=== PATIENT | female | born 1990 | race Caucasian/White ===

== ENCOUNTER 2018-01-19 15:25 | Emergency (ER) | payer SELFPAY ==
[~2018-01-19] VITALS: Ht 165.1 cm; Wt 104.0 kg
[2018-01-19 15:36] VITALS: BP 118/59; TEMP 98.2
[2018-01-19] MEDS ORDERED: PROZAC60 MG (15:49)
[2018-01-19] MEDS ORDERED: IRON 27 MG PO (15:50)
[2018-01-19] MEDS ORDERED: ALLEGRA ALLERGY60 MG PO (15:50)
[2018-01-19] MEDS ORDERED: PROAIR HFA0.09 MG/AC IH (16:22)
[2018-01-19] MEDS ORDERED: PREDNISONE20 MG PO (16:22)
[2018-01-19 17:07] VITALS: PULSE 64
== END 2018-01-19 17:07 | disposition home or self-care (01) ==
LOC: COL.ER 15:25
DX: J45.909 Unspecified asthma, uncomplicated (principal); F17.210 Nicotine dependence, cigarettes, uncomplicated; Z88.8 Allergy status to other drugs, medicaments and biological substances; Z98.51 Tubal ligation status; Z98.890 Other specified postprocedural states

== ENCOUNTER 2018-02-09 19:27 | Emergency (ER) | payer SELFPAY ==
[~2018-02-09] VITALS: Ht 165.1 cm; Wt 101.4 kg
[~2018-02-09 19:27] MED LIST: ALLEGRA ALLERGY60 MG PO; IRON 27 MG PO; PREDNISONE20 MG PO; PROAIR HFA0.09 MG/AC IH; PROZAC60 MG
[2018-02-09 19:29] VITALS: TEMP 98
[2018-02-09 20:08] LABS: BASO % 0.5 % (0.0-2.0); EOS # 0.2 (0.0-0.7); EOS % 2.7 % (0-4.0); GRAN # 5.8 (1.4-6.5); GRAN % 69.2 % (42.2-75.2); HEMOGLOBIN 10.7 g/dl (12.5-16.0); LYMPH # 1.8 (1.2-3.4); LYMPH % 21.9 % (20.0-51.0); MEAN CELL VOLUME 76 fl (80.0-100.0); MEAN CORPUSCULAR HEMOGLOBIN 24 pg (27.0-31.0); MEAN CORPUSCULAR HGB CONC 31 g/dl (33.0-37.0); MEAN PLATELET VOLUME 9.5 fl (7.4-10.4); MONO # 0.5 (0.1-0.6); MONO % 5.5 % (1.7-9.3); PLATELET COUNT 220 K/mm3 (130-400); RED BLOOD COUNT 4.53 M/mm3 (4.10-5.30); REDCELL DISTRIBUTION WIDTH-CV 18.7 % (11.5-14.5)
[2018-02-09 20:10] LABS: HEMATOCRIT 34.4 % (37.0-47.0)
[2018-02-09 20:17] LABS: ALANINE AMINOTRANSFERASE 25 U/L (9-52); ALBUMIN 3.9 gm/dL (3.5-5.0); ALKALINE PHOSPHATASE 80 U/L (50-136); ANION GAP 11 mmol/L (7-16); AST,SGOT 14 U/L (15-37); BILIRUBIN,TOTAL 0.5 mg/dL (0.0-1.0); BLOOD UREA NITROGEN 10 mg/dL (7-17); CALCIUM 9.2 mg/dL (8.4-10.2); CARBON DIOXIDE 24 mmol/L (22-30); CHLORIDE 103 mmol/L (98-107); CREATININE, serum 0.76 mg/dL (0.52-1.25); GLUCOSE 91 mg/dL (74-106); POTASSIUM 3.4 mmol/L (3.4-5.0); SODIUM 138 mmol/L (137-145); TOTAL PROTEIN 7.7 gm/dL (6.4-8.2)
[2018-02-09 20:18] LABS: ACETAMINOPHEN < 10 ug/mL (10-30); ALCOHOL(ethanol),MEDICAL < 10 mg/dL; SALICYLATE < 1.0 mg/dL
[2018-02-09 20:25] LABS: COLLECTION METHOD CLEAN CATCH
[2018-02-09 20:34] LABS: MUCOUS Present /lpf; PH 6 (5-8); SQUAMOUS EPITHELIAL 0-2 /hpf; URINE APPEARANCE Clear; URINE BACTERIA Rare /hpf; URINE BILIRUBIN Negative (NEGATIVE); URINE BLOOD Negative (NEGATIVE); URINE COLOR Yellow; URINE GLUCOSE Negative (NEGATIVE); URINE KETONE Negative (NEGATIVE); URINE LEUKOCYTE ESTERASE Negative (NEGATIVE); URINE NITRATE Negative (NEGATIVE); URINE PROTEIN(semi-quant) Negative (NEGATIVE); URINE RBC None Seen /hpf
[2018-02-09 20:39] LABS: TRICYCLIC ANTIDEPRESS URINE NEGATIVE
[2018-02-09] MEDS ORDERED: CYMBALTA 60MG60 MG PO (21:10)
[2018-02-09] MEDS ORDERED: XANAX 1MG1 MG PO (21:10)
[2018-02-09 23:09] VITALS: BP 113/69; PULSE 90
== END 2018-02-09 22:15 | disposition home or self-care (01) ==
LOC: COL.ER 19:27
PROVIDERS: Emergency Medicine
DX: F41.9 Anxiety disorder, unspecified (principal); F19.939 Other psychoactive substance use, unspecified with withdrawal, unspecified; F32.9 Major depressive disorder, single episode, unspecified; Z98.51 Tubal ligation status

== ENCOUNTER → 2018-12-02 | Outpatient (CLI) | payer MEDICAID ==
[~2018-12-02] MED LIST changes: +CYMBALTA 60MG60 MG PO; +XANAX 1MG1 MG PO
== END ==
LOC: MC.RAD 09:00
DX: N63.20 Unspecified lump in the left breast, unspecified quadrant (principal)

== ENCOUNTER 2019-02-13 08:39 | Emergency (ER) | payer MEDICAID ==
[~2019-02-13] VITALS: Ht 165.1 cm; Wt 86.4 kg
[2019-02-13] MEDS ORDERED: PHENERGAN 25 TA25 MG PO (08:58)
[2019-02-13] MEDS ORDERED: ROBAXIN 50500 MG/TAB PO (08:59)
[2019-02-13] MEDS ORDERED: DOXYCYCLINE 10100 MG PO (08:59)
[2019-02-13 09:45] VITALS: BP 113/57; PULSE 85; TEMP 98.4
== END 2019-02-13 09:46 | disposition home or self-care (01) ==
LOC: COL.ER 08:39
DX: S00.83XA Contusion of other part of head, initial encounter (principal); S00.93XA Contusion of unspecified part of head, initial encounter; F41.9 Anxiety disorder, unspecified; F17.210 Nicotine dependence, cigarettes, uncomplicated; F12.90 Cannabis use, unspecified, uncomplicated; Z98.890 Other specified postprocedural states; Z98.51 Tubal ligation status; W22.8XXA Striking against or struck by other objects, initial encounter

== ENCOUNTER 2020-10-17 09:30 | Outpatient (RCR) | payer MEDICAID ==
[~2020-10-17 09:30] MED LIST changes: +DOXYCYCLINE 10100 MG PO; +PHENERGAN 25 TA25 MG PO; +ROBAXIN 50500 MG/TAB PO
== END 2020-11-07 ==
LOC: WSPT
DX: M54.5 Low back pain (principal)

== ENCOUNTER 2021-01-04 16:43 | Emergency (ER) | payer MEDICAID ==
[~2021-01-04] VITALS: Ht 165.1 cm; Wt 100.0 kg
[2021-01-04 18:05] VITALS: BP 130/78; PULSE 70; TEMP 98.1
== END 2021-01-04 18:10 | disposition home or self-care (01) ==
LOC: COL.ER 16:43
DX: S60.222A Contusion of left hand, initial encounter (principal); J45.909 Unspecified asthma, uncomplicated; F32.9 Major depressive disorder, single episode, unspecified; F17.210 Nicotine dependence, cigarettes, uncomplicated; Z79.51 Long term (current) use of inhaled steroids; Z79.899 Other long term (current) drug therapy; W22.8XXA Striking against or struck by other objects, initial encounter

== ENCOUNTER 2021-03-03 19:13 | Emergency (ER) | payer MEDICAID ==
[~2021-03-03] VITALS: Ht 165.1 cm; Wt 97.7 kg
[2021-03-03 19:14] VITALS: TEMP 98.5
[2021-03-03 21:05] VITALS: BP 127/65; PULSE 79
== END 2021-03-03 21:06 | disposition home or self-care (01) ==
LOC: COL.ER 19:13
DX: S70.01XA Contusion of right hip, initial encounter (principal); S70.11XA Contusion of right thigh, initial encounter; J45.909 Unspecified asthma, uncomplicated; F17.210 Nicotine dependence, cigarettes, uncomplicated; Z79.899 Other long term (current) drug therapy; W10.8XXA Fall (on) (from) other stairs and steps, initial encounter

== ENCOUNTER 2021-07-31 07:45 | Outpatient (RCR) | payer MEDICAID | END 2021-08-23 | disposition home or self-care (01) | LOC: PT.GENESIS | DX: M54.16 Radiculopathy, lumbar region (principal) ==

== ENCOUNTER 2021-09-13 11:15 | Outpatient (RCR) | payer MEDICAID | END 2021-09-23 | disposition home or self-care (01) | LOC: PT.GENESIS | DX: M54.16 Radiculopathy, lumbar region (principal) ==

== ENCOUNTER 2021-10-02 09:34 | Outpatient (RCR) | payer MEDICAID | END 2021-10-21 | disposition home or self-care (01) | LOC: PT.GENESIS | DX: M54.16 Radiculopathy, lumbar region (principal) ==

== ENCOUNTER 2022-11-23 12:23 | Emergency (ER) | payer MEDICAID ==
[~2022-11-23] VITALS: Ht 165.1 cm; Wt 100.0 kg
[2022-11-23 12:35] VITALS: BP 130/92; TEMP 98.5
[2022-11-23] MEDS ORDERED: AMOXICILLIN 8751 TAB PO (12:47)
[2022-11-23 12:59] VITALS: PULSE 94
== END 2022-11-23 13:01 | disposition home or self-care (01) ==
LOC: COL.ER 12:23
DX: K04.7 Periapical abscess without sinus (principal); F17.210 Nicotine dependence, cigarettes, uncomplicated; Z88.1 Allergy status to other antibiotic agents; Z28.310 Unvaccinated for COVID-19
CPT/HCPCS: J8540

== ENCOUNTER 2023-06-07 19:51 | Emergency (ER) | payer SELFPAY ==
[~2023-06-07] VITALS: Ht 165.1 cm; Wt 97.7 kg
[~2023-06-07 19:51] MED LIST changes: +AMOXICILLIN 8751 TAB PO
[2023-06-07 19:54] VITALS: TEMP 98
[2023-06-07 20:31] LABS: COLLECTION METHOD CLEAN CATCH
[2023-06-07 20:37] LABS: BASO # 0.1 K/mm3 (0.0-0.2); BASO % 1.4 % (0.0-2.0); EOS # 0.1 K/mm3 (0.0-0.7); EOS % 3.5 % (0.0-4.0); GRAN # 1.7 K/mm3 (1.4-6.5); GRAN % 47.2 % (42.2-75.2); HEMOGLOBIN 11.4 g/dl (12.5-16.0); LYMPH # 1.3 K/mm3 (1.2-3.4); LYMPH % 35.9 % (20.0-51.0); MEAN CELL VOLUME 87 fl (80.0-100.0); MEAN CORPUSCULAR HEMOGLOBIN 28 pg (27-31); MEAN CORPUSCULAR HGB CONC 33 g/dl (33.0-37.0); MEAN PLATELET VOLUME 10.3 fl (7.4-10.4); MONO # 0.4 K/mm3 (0.1-0.6); MONO % 11.7 % (1.7-9.3); PLATELET COUNT 169 K/mm3 (130-400); RED BLOOD COUNT 4.06 M/mm3 (4.10-5.30); REDCELL DISTRIBUTION WIDTH-CV 13.7 % (11.5-14.5)
[2023-06-07 20:39] LABS: HEMATOCRIT 35.1 % (37.0-47.0)
[2023-06-07 20:49] LABS: ALBUMIN 3.5 gm/dL (3.5-5.0); BILIRUBIN,TOTAL 0.5 mg/dL (0.2-1.2); C-REACTIVE PROTEIN 0.66 mg/dL (0.00-0.50); CALCIUM 8.8 mg/dL (8.4-10.2); CREATININE, serum 0.76 mg/dL (0.57-1.11); POTASSIUM 3.5 mmol/L (3.5-4.5); TOTAL PROTEIN 6.4 gm/dL (6.2-8.1)
[2023-06-07 20:58] LABS: URINE APPEARANCE Clear (CLEAR/HAZY); URINE COLOR Amber (YELLOW)
[2023-06-07 20:59] LABS: URINE BLOOD Negative (NEGATIVE); URINE GLUCOSE Negative (NEGATIVE); URINE KETONE 1+ (NEGATIVE); URINE NITRATE Negative (NEGATIVE); URINE PROTEIN(semi-quant) TRACE (NEGATIVE); URINE RBC None Seen /hpf (0-2); URINE UROBILINOGEN >=8.0 E.U/dL (0.2-1.0)
[2023-06-07 21:00] LABS: MUCOUS Present (NOT PRESENT); URINE BACTERIA Moderate /hpf (NONE SEEN)
[2023-06-07 21:54] VITALS: BP 100/60; PULSE 59
== END 2023-06-07 22:00 | disposition home or self-care (01) ==
LOC: COL.ER 19:51
PROVIDERS: Nurse Practitioner Primary Care
DX: K52.9 Noninfective gastroenteritis and colitis, unspecified (principal)
CPT/HCPCS: J1790; J2405; J7030